=== PATIENT | female | born 1945 | race Caucasian/White ===

== ENCOUNTER 2017-11-10 07:19 | Day surgery (SDC) | payer MEDICARE, BC ==
[~2017-11-10 07:19] MED LIST: ANTIVERT OR; CIPROFLOXACN500 MG PO; CLONAZEPAM0.5 M1 PO; CLONAZEPAM0.5 MG PO; CORTISPORIN OTI10 ML AU; CYANOCOBALAM1000 MCG IJ; CYANOCOBALAM1000 MCG IM; DRAMAMINE25 MG PO; FLOMAX0.4 M1 PO; HYDROCHLOROT12.5 MG PO; LORTAB 5-325 MG1 TAB PO; MECLIZINE12.5 MG PO; MELOXICAM15 MG PO; NO MEDS; OMEPRAZOLE20.6 MGDR PO; PNEUMOVAX 23 IM; REGLAN10 MG OR; VOSOL2 % OT; ZOFRAN4 MG/TAB PO
[2017-11-10] MEDS ORDERED: PERCOCET 5/325M1 TAB PO (11:00)
[2017-11-10 11:37] VITALS: BP 113/56
== END 2017-11-10 12:05 | disposition home or self-care (01) ==
LOC: ORM 07:19
PROVIDERS: ATTEND Surgery
PROC: 0FT44ZZ Resection of Gallbladder, Percutaneous Endoscopic Approach (ICD-10-PCS; principal; 2017-11-10)
PROC: 0DJ08ZZ Inspection of Upper Intestinal Tract, Via Natural or Artificial Opening Endoscopic (ICD-10-PCS; 2017-11-10)
DX: K80.12 Calculus of gallbladder with acute and chronic cholecystitis without obstruction (principal); K21.9 Gastro-esophageal reflux disease without esophagitis; R13.10 Dysphagia, unspecified; K29.70 Gastritis, unspecified, without bleeding; G25.0 Essential tremor
CPT/HCPCS: J2710

== ENCOUNTER 2018-01-22 18:08 | Emergency (ER) | payer MEDICARE, BC ==
[~2018-01-22] VITALS: Ht 165.1 cm; Wt 99.0 kg
[~2018-01-22 18:08] MED LIST changes: +PERCOCET 5/325M1 TAB PO
[2018-01-22 19:54] LABS: HEMATOCRIT 42.8 % (37.0-47.0); IMMATURE GRANULOCYTES 0.7 % (0.0-5.0); MEAN CELL VOLUME 103.1 fL CALC (80.0-100.0); MEAN CORPUSCULAR HGB 33.7 pG CALC (26.0-32.0); MEAN CORPUSCULAR HGB CONC 32.7 g/L CALC (32.0-36.0); NEUT# 13.3 thou/uL (2.00-7.15); RED BLOOD COUNT 4.15 mill/uL (4.20-5.60); RED CELL DISTRI WIDTH 12.1 % (11.5-15.5)
[2018-01-22 19:55] LABS: URINE BILIRUBIN - DIPSTICK NEGATIVE (NEGATIVE); URINE BLOOD DIPSTICK LARGE (NEGATIVE); URINE COLOR YELLOW; URINE GLUCOSE - DIPSTICK NEGATIVE (NEGATIVE); URINE KETONE NEGATIVE (NEGATIVE); URINE LEUK ESTERASE TRACE (NEGATIVE); URINE NITRITE - DIPSTICK NEGATIVE (Negative); URINE PROTEIN - DIPSTICK NEGATIVE (NEG-TRACE); URINE SPECIFIC GRAVITY 1.025; URINE UROBILINOGEN - DIPSTICK 0.2 E.U./dL (0.2)
[2018-01-22 20:00] LABS: URINE CLARITY CLEAR
[2018-01-22 20:11] LABS: ALBUMIN 3.8 g/dL (3.2-5.0); ALKALINE PHOSPHATASE 83 u/l (38-126); AMYLASE 66 u/l (30-110); ANION GAP 11 (6-22 (CALC)); BILIRUBIN, TOTAL 0.6 mg/dL (0.0-1.4); BUN 12 mg/dL (8-23); BUN/CREATININE RATIO 14 (12-20 (CALC)); CARBON DIOXIDE 28 mmol/l (22-30); CHLORIDE 104 mmol/l (95-108); CREATININE 0.9 mg/dL (0.5-1.0); GFR > 60 ML/MIN (>=60 (CALC)); GFR FOR AFR.AMER. > 60 ML/MIN (>=60 (CALC)); LIPASE 32 u/l (23-300); POTASSIUM 4.1 mmol/l (3.5-5.1); SGOT/AST 23 u/l (9-36); SGPT/ALT 16 u/l (11-66); SODIUM 139 mmol/l (137-146); TOTAL PROTEIN 6.9 g/dL (6.3-8.2)
[2018-01-22 20:13] LABS: URINE SQUAMOUS EPITHELIAL CELL FEW EPI/hpf (0-FEW)
[2018-01-22 20:14] LABS: URINE BACTERIA FEW hpf; URINE MUCUS FEW hpf (NONE-FEW)
[2018-01-22 20:15] LABS: URINE YEAST RARE hpf
[2018-01-22 23:56] LABS: C. DIFFICILE TOXIN A&B NEGATIVE (NEGATIVE)
[2018-01-22 23:57] VITALS: BP 108/49
== END 2018-01-22 23:57 | disposition short-term general hospital (02) ==
LOC: ED 18:08
PROVIDERS: Emergency Medicine
DX: K50.10 Crohn's disease of large intestine without complications (principal); F41.9 Anxiety disorder, unspecified; G25.0 Essential tremor
CPT/HCPCS: Q9967; S0164

== ENCOUNTER 2020-06-04 08:12 | Emergency (ER) | payer MEDICARE ==
[~2020-06-04] VITALS: Ht 165.1 cm; Wt 100.0 kg
[2020-06-04 09:04] LABS: URINE BILIRUBIN - DIPSTICK NEGATIVE (NEGATIVE); URINE BLOOD DIPSTICK MODERATE (NEGATIVE); URINE COLOR YELLOW; URINE GLUCOSE - DIPSTICK NEGATIVE (NEGATIVE); URINE KETONE NEGATIVE (NEGATIVE); URINE LEUK ESTERASE NEGATIVE (NEGATIVE); URINE PROTEIN - DIPSTICK NEGATIVE (NEG-TRACE); URINE UROBILINOGEN - DIPSTICK 0.2 E.U./dL (0.2)
[2020-06-04 09:15] LABS: URINE EPITHELIAL CELLS RARE EPI/hpf (0-FEW); URINE NITRITE - DIPSTICK NEGATIVE (Negative); URINE WBC 0-2 WBC/hpf (0-5)
[2020-06-04 09:58] LABS: HEMATOCRIT 43.1 % (37.0-47.0); HEMOGLOBIN 13.5 g/dl (12.0-16.0); IMMATURE GRANULOCYTES 0.5 % (0.0-5.0); MEAN CELL VOLUME 102.6 fL CALC (80.0-100.0); MEAN CORPUSCULAR HGB 32.1 pG CALC (26.0-32.0); MEAN CORPUSCULAR HGB CONC 31.3 g/dL CAL (32.0-36.0); NEUT# 1.87 thou/uL (2.00-7.15); RED BLOOD COUNT 4.2 mill/uL (4.20-5.60); RED CELL DISTRI WIDTH 12.2 % (11.5-15.5)
[2020-06-04 10:08] LABS: ALBUMIN 3.9 g/dL (3.2-5.0); ALKALINE PHOSPHATASE 78 u/l (38-126); ANION GAP 9 (6-22 (CALC)); BILIRUBIN, TOTAL 0.3 mg/dL (0.0-1.4); BUN 10 mg/dL (8-23); BUN/CREATININE RATIO 12 (12-20 (CALC)); CARBON DIOXIDE 29 mmol/l (22-30); CHLORIDE 106 mmol/l (95-108); CREATININE 0.8 mg/dL (0.5-1.0); GFR > 60 ML/MIN (>=60 (CALC)); GFR FOR AFR.AMER. > 60 ML/MIN (>=60 (CALC)); POTASSIUM 4.1 mmol/l (3.5-5.1); SGOT/AST 31 u/l (9-36); SODIUM 139 mmol/l (137-146); TOTAL PROTEIN 6.7 g/dL (6.3-8.2)
[2020-06-04] MEDS ORDERED: OMNI-PAC300 MG PO (11:28)
[2020-06-04 11:48] VITALS: BP 126/70
== END 2020-06-04 11:45 | disposition home or self-care (01) ==
LOC: ED 08:12
PROVIDERS: Family Medicine
DX: M54.5 Low back pain (principal); R31.9 Hematuria, unspecified; F41.9 Anxiety disorder, unspecified

== ENCOUNTER 2021-08-19 07:46 | Day surgery (SDC) | payer MEDICARE ==
[~2021-08-19] VITALS: Ht 165.1 cm; Wt 97.5 kg
[~2021-08-19 07:46] MED LIST changes: +ALLERGY10 M2 PO; +BIOTIN EXTR10000 MCG PO; +MULTI VIT PO; +OMNI-PAC300 MG PO; +VITAMIN B-12500 MCG PO; +VITAMIN D3400 UNIT PO
[2021-08-19 11:01] VITALS: BP 117/70
== END 2021-08-19 11:15 | disposition home or self-care (01) ==
LOC: ENDO 07:46
PROVIDERS: ATTEND Surgery
PROC: 0DBK8ZX Excision of Ascending Colon, Via Natural or Artificial Opening Endoscopic, Diagnostic (ICD-10-PCS; principal; 2021-08-19)
PROC: 0DB48ZX Excision of Esophagogastric Junction, Via Natural or Artificial Opening Endoscopic, Diagnostic (ICD-10-PCS; 2021-08-19)
DX: Z12.11 Encounter for screening for malignant neoplasm of colon (principal); D12.2 Benign neoplasm of ascending colon; K57.10 Diverticulosis of small intestine without perforation or abscess without bleeding; K29.70 Gastritis, unspecified, without bleeding; K44.9 Diaphragmatic hernia without obstruction or gangrene; J44.9 Chronic obstructive pulmonary disease, unspecified; Z86.79 Personal history of other diseases of the circulatory system; Z86.010 Personal history of colon polyps

== ENCOUNTER 2022-07-03 17:41 | Emergency (ER) | payer MEDICARE ==
[~2022-07-03] VITALS: Ht 165.1 cm; Wt 94.0 kg
[2022-07-03 18:14] VITALS: BP 139/85
[2022-07-03 18:31] VITALS: BP 147/87
[2022-07-03 18:34] LABS: URINE BILIRUBIN - DIPSTICK NEGATIVE (NEGATIVE); URINE BLOOD DIPSTICK LARGE (NEGATIVE); URINE COLOR YELLOW; URINE GLUCOSE - DIPSTICK NEGATIVE (NEGATIVE); URINE KETONE NEGATIVE (NEGATIVE); URINE LEUK ESTERASE NEGATIVE (NEGATIVE); URINE NITRITE - DIPSTICK NEGATIVE (Negative); URINE PH 5.5 (4.5-8.0); URINE PROTEIN - DIPSTICK NEGATIVE (NEG-TRACE); URINE SPECIFIC GRAVITY >=1.030; URINE UROBILINOGEN - DIPSTICK 0.2 E.U./dL (0.2)
[2022-07-03 18:55] LABS: URINE SQUAMOUS EPITHELIAL CELL FEW EPI/hpf (0-FEW); URINE WBC 0-2 WBC/hpf (0-5)
[2022-07-03 19:18] VITALS: BP 146/74
[2022-07-03 19:31] VITALS: BP 145/76
[2022-07-03 19:31] LABS: BASO% 0.3 % (0-3); EOS% 1.1 % (0-8); HEMATOCRIT 40.7 % (37.0-47.0); HEMOGLOBIN 13.7 g/dl (12.0-16.0); IMMATURE GRANULOCYTES 0.5 % (0.0-5.0); LYMPH% 13.6 % (15-41); MEAN CORPUSCULAR HGB 34.7 pG CALC (26.0-32.0); MEAN CORPUSCULAR HGB CONC 33.7 g/dL CAL (32.0-36.0); MONO% 7.5 % (2-13); NEUT# 6.73 thou/uL (2.00-7.15); RED BLOOD COUNT 3.95 mill/uL (4.20-5.60); RED CELL DISTRI WIDTH 12.5 % (11.5-15.5)
[2022-07-03 19:43] LABS: ALBUMIN 4.3 g/dL (3.2-5.0); BILIRUBIN, TOTAL 0.5 mg/dL (0.0-1.4); CREATININE 1.2 mg/dL (0.5-1.0); POTASSIUM 4.1 mmol/l (3.5-5.1); TOTAL PROTEIN 7.5 g/dL (6.3-8.2)
[2022-07-03] MEDS ORDERED: MEDDOSEPAK PO (20:42)
[2022-07-03] MEDS ORDERED: METHOCARBAMOL500 MG PO (20:42)
[2022-07-03 21:11] VITALS: BP 145/76
== END 2022-07-03 21:22 | disposition home or self-care (01) ==
LOC: ED 17:41
PROVIDERS: Nurse Practitioner
DX: M54.50 Low back pain, unspecified (principal); N18.9 Chronic kidney disease, unspecified; F41.9 Anxiety disorder, unspecified; G25.0 Essential tremor; Z87.442 Personal history of urinary calculi

== ENCOUNTER 2022-11-10 17:53 | Emergency (ER) | payer MEDICARE ==
[~2022-11-10] VITALS: Ht 165.1 cm; Wt 99.0 kg
[~2022-11-10 17:53] MED LIST changes: +MEDDOSEPAK PO; +METHOCARBAMOL500 MG PO
[2022-11-10] MEDS ORDERED: PROAIR HFA IN (20:06)
[2022-11-10] MEDS ORDERED: MEDDOSEPAK PO (20:06)
[2022-11-10] MEDS ORDERED: ZYRTEC10 MG PO (20:06)
[2022-11-10] MEDS ORDERED: ZPAK PO (20:06)
[2022-11-10 20:19] VITALS: BP 123/51
== END 2022-11-10 20:29 | disposition home or self-care (01) ==
LOC: ED 17:53
DX: J40 Bronchitis, not specified as acute or chronic (principal); F41.9 Anxiety disorder, unspecified; G25.0 Essential tremor; Z20.822 Contact with and (suspected) exposure to COVID-19